=== PATIENT | female | born 1995 | race African-American/Black ===

== ENCOUNTER 2025-11-03 20:39 | Emergency (ER) | payer OTHER ==
[~2025-11-03] VITALS: Ht 157.5 cm; Wt 90.0 kg
[~2025-11-03 20:39] MED LIST: HYDR-643 PO; NORE1TAB73 PO; TOPR25TA PO; VYVA1CAP PO
[2025-11-03 20:42] VITALS: TEMP 97.7
[2025-11-03 21:11] LABS: BASO # 0.0 10^3/uL (0.0-0.2); BASO % 0.3 % (0.0-1.0); EOS # 0.1 10^3/uL (0.0-0.5); EOS % 1.3 % (0.0-3.0); LYMPH # 2.3 10^3/uL (1.5-5.0); LYMPH % 29.6 % (24.0-44.0); MONO # 0.7 10^3/uL (0.0-0.8); MONO % 8.4 % (2.0-8.0); NEUTROPHILS # 4.8 10^3/uL (1.5-8.5); NEUTROPHILS % 60.1 % (36.0-66.0); PLATELET COUNT, AUTOMATED 349 10^3/uL (150-450)
[2025-11-03 21:27] LABS: CALCIUM LEVEL 9.1 MG/DL (8.5-10.1); CARBON DIOXIDE LEVEL 27 MMOL/L (20-31); CHLORIDE LEVEL 104 MMOL/L (98-107); CK-MB VALUE MASS < 1.0 NG/ML (<3.6); CPK CREATINE PHOSPHOKINASE 104 U/L (34-145); CREATININE FOR GFR 0.89 MG/DL (0.55-1.30); GLOMERULAR FILTRATION RATE 89.4 (>60); POTASSIUM SERUM 3.8 MMOL/L (3.5-5.1); SODIUM LEVEL 139 MMOL/L (136-145)
[2025-11-03 22:00] LABS: MAGNESIUM LEVEL 1.7 MG/DL (1.8-2.4)
[2025-11-03] MEDS: KETOROLAC 30 MG/ML 1 ML VIAL IV ONE (22:00)
[2025-11-03 22:36] LABS: CK-MB VALUE MASS < 1.0 NG/ML (<3.6)
[2025-11-03 22:38] LABS: CPK CREATINE PHOSPHOKINASE 95 U/L (34-145)
[2025-11-03 23:30] VITALS: BP 117/69; O2SAT 98
== END 2025-11-03 23:34 | disposition home or self-care (01) ==
LOC: M ED 20:39
DX: M94.0 Chondrocostal junction syndrome [Tietze] (principal); R07.89 Other chest pain; K21.9 Gastro-esophageal reflux disease without esophagitis; J45.909 Unspecified asthma, uncomplicated; Z88.1 Allergy status to other antibiotic agents; Z88.7 Allergy status to serum and vaccine; Z79.899 Other long term (current) drug therapy
CPT/HCPCS: 71045; 80048; 82550; 82553; 83735; 84484; 85025; 87486; 87581; 87633; 87798; 93005; 93041; 94760; 96374; 99285; J1885